=== PATIENT | female | born 1965 | race Native Hawaiian/Other Pacific Islander ===

== ENCOUNTER 2021-06-03 10:19 | Outpatient (CLI) | payer OTHER | END 2021-06-03 19:31 | disposition home or self-care (01) | LOC: RAD 10:19 | PROVIDERS: ATTEND Nurse Practitioner Family | DX: S49.91XD Unspecified injury of right shoulder and upper arm, subsequent encounter (principal) ==

== ENCOUNTER 2021-11-26 13:44 | Emergency (ER) | payer OTHER ==
[~2021-11-26] VITALS: Ht 154.9 cm; Wt 96.2 kg
[2021-11-26 15:40] VITALS: BP 159/83; TEMP 97.8
== END 2021-11-26 15:40 | disposition home or self-care (01) ==
LOC: ED 13:44
DX: S09.8XXA Other specified injuries of head, initial encounter (principal); F07.81 Postconcussional syndrome; R11.2 Nausea with vomiting, unspecified; W21.01XA Struck by football, initial encounter; Y92.89 Other specified places as the place of occurrence of the external cause
CPT/HCPCS: 96372; 99283; J1200; J1885; J2405

== ENCOUNTER 2022-02-22 10:15 | Emergency (ER) | payer OTHER ==
[~2022-02-22] VITALS: Ht 154.9 cm; Wt 96.2 kg
[2022-02-22 11:00] LABS: PLATELET COUNT 211 K/uL (152-353)
[2022-02-22 11:26] LABS: POTASSIUM 3.6 mmol/L (3.6-5.2)
[2022-02-22] MEDS ORDERED: ONDA4TAB3 PO (14:10)
[2022-02-22 15:47] VITALS: BP 121/67; TEMP 99.1
== END 2022-02-22 16:15 | disposition home or self-care (01) ==
LOC: ED 10:15
PROVIDERS: Emergency Medicine
DX: K52.89 Other specified noninfective gastroenteritis and colitis (principal); B34.9 Viral infection, unspecified; U07.1 COVID-19
CPT/HCPCS: 80053; 84484; 85027; 85610; 87635; 93005; 96360; 96361; 96374; 99284; J1885; J2405; U0003

== ENCOUNTER 2022-06-01 15:45 | Emergency (ER) | payer OTHER ==
[~2022-06-01] VITALS: Ht 154.9 cm; Wt 96.2 kg
[~2022-06-01 15:45] MED LIST: ONDA4TAB3 PO
[2022-06-01 15:50] VITALS: TEMP 98.2
[2022-06-01 17:29] VITALS: BP 157/89
== END 2022-06-01 17:30 | disposition home or self-care (01) ==
LOC: ED 15:45
DX: S20.211A Contusion of right front wall of thorax, initial encounter (principal); W01.198A Fall on same level from slipping, tripping and stumbling with subsequent striking against other object, initial encounter; Y92.89 Other specified places as the place of occurrence of the external cause
CPT/HCPCS: 99283; J1885

== ENCOUNTER 2022-07-24 14:35 | Emergency (ER) | payer OTHER ==
[~2022-07-24] VITALS: Ht 154.9 cm; Wt 99.3 kg
[2022-07-24 14:45] VITALS: TEMP 98.9
[2022-07-24 18:48] VITALS: BP 170/95
== END 2022-07-24 18:48 | disposition home or self-care (01) ==
LOC: ED 14:35
DX: S43.491A Other sprain of right shoulder joint, initial encounter (principal); S63.591A Other specified sprain of right wrist, initial encounter; S60.511A Abrasion of right hand, initial encounter; Y08.89XA Assault by other specified means, initial encounter; Y92.89 Other specified places as the place of occurrence of the external cause
CPT/HCPCS: 90471; 90715; 96372; 99283; J1885

== ENCOUNTER 2022-11-14 08:35 | Emergency (ER) | payer BC ==
[~2022-11-14] VITALS: Ht 154.9 cm; Wt 98.0 kg
[2022-11-14 11:30] VITALS: BP 128/78; TEMP 98.5
== END 2022-11-14 11:35 | disposition home or self-care (01) ==
LOC: ED 08:35
DX: S80.01XA Contusion of right knee, initial encounter (principal); S70.02XA Contusion of left hip, initial encounter; W10.8XXA Fall (on) (from) other stairs and steps, initial encounter; Y92.038 Other place in apartment as the place of occurrence of the external cause
CPT/HCPCS: 99283

== ENCOUNTER 2023-10-15 07:53 | Emergency (ER) | payer BC ==
[~2023-10-15] VITALS: Ht 154.9 cm; Wt 99.8 kg
[2023-10-15 07:59] VITALS: BP 132/95; TEMP 98.5
[2023-10-15] MEDS ORDERED: DEXAMETHASONE SODIUM PHOSPHATE 4 MG INJ IM ONE (08:44)
[2023-10-15] MEDS ORDERED: CEFTRIAXONE SODIUM 1,000 MG INJ IM ONE (08:44)
[2023-10-15] MEDS ORDERED: DEXAMETHASONE SODIUM PHOSPHATE 4 MG INJ ONE (08:46)
[2023-10-15] MEDS ORDERED: LIDOCAINE MPF 1% 5ML ONE (08:46)
[2023-10-15] MEDS ORDERED: CEFTRIAXONE SODIUM 1,000 MG IV ONE (08:47)
[2023-10-15] MEDS ORDERED: AZIT250T3 PO (09:03)
[2023-10-15] MEDS ORDERED: NOHIST-DM PO (09:03)
== END 2023-10-15 09:24 | disposition home or self-care (01) ==
LOC: ED 07:53
DX: R50.9 Fever, unspecified (principal); R05.9 Cough, unspecified; I10 Essential (primary) hypertension; J06.9 Acute upper respiratory infection, unspecified; J18.0 Bronchopneumonia, unspecified organism
CPT/HCPCS: 87502; 87635; 96372; 99283; J0696; J1100; U0003